=== PATIENT | female | born 1940 | race Caucasian/White ===

== ENCOUNTER → 2021-04-28 | Day surgery (SDC) | payer OTHER ==
[~2021-04-28] VITALS: Ht 157.5 cm; Wt 59.9 kg
[~2021-04-28] MED LIST: GABAPENTIN600 M1 PO; HYDROXYZINE HCL25 M2 PO; IBUPROFEN 600600 M1 PO; LEVOTHYROXIN0.088 MG PO; LEVOTHYROXINE75 MCG PO; LISINOPRIL10 MG PO; LOVASTATIN 20 M20 MG PO; LOVASTATIN40 MG PO; NEURONTIN600 MG PO; NIFEDIPINE ER30 MG PO; OSELB75 PO; PROBIOTIC1 EAC7 PO; ZANTAC 150MG T150 MG PO
--- NOTE | ~2021-04-28 | O ---
[facility] [place] [address] OPERATIVE REPORT Name: LEONARDO KRISHNAN Room #: REG [facility].#: [id number] Admission: 04/28/21 Attend Phys: Rajesh Domingo MD Discharge: Date of : 38 Report #: [id number] THIS REPORT FOR: cc: Geri Denis,Rajesh Herbert MD ~ cc: Geri Warren DATE OF SERVICE: 04/28/2021 PREOPERATIVE DIAGNOSIS: Basal cell carcinoma, right lower lid and cheek. POSTOPERATIVE DIAGNOSIS: Basal cell carcinoma, right lower lid and cheek. PROCEDURE: Excision of basal cell carcinoma of right lower lid and cheek with frozen section control of margins and myocutaneous flap repair of defect. SURGEON: Rajesh Domingo MD. BORING MACHINE OPERATOR HORIZONTAL: None. ANESTHESIA: MAC. COMPLICATIONS: None. INDICATIONS FOR SURGERY: This pleasant 81-year-old woman has a biopsy proven basal cell carcinoma in her right lower lid that extends down onto her cheek. She presents today for excision of the tumor with frozen sections and subsequent reconstruction of that defect. Informed consent was obtained to include but not limited to the potential risk for loss of vision, bleeding, infection, failure to improve the problem, the potential need for further surgery or treatment. DESCRIPTION OF PROCEDURE: The patient was taken to the operating room where 2% Xylocaine with epinephrine mixed with equal parts 0.75% Marcaine with Wydase was administered transcutaneously and transconjunctivally to the right lower lid, the right cheek, the right medial canthus, right lateral canthus and the infratemporal fossa. The patient was subsequently prepped and draped in the usual sterile fashion. A fine tip skin marking pen was then utilized to outline the lesion including 1-2 mm of normal appearing tissue around its margins. The incisions were then made perpendicularly across the eyelid margin and drawn to a point in the premalar space. Hemostasis was achieved with diligent pinpoint monopolar cautery. The specimen was then oriented on a drawing for the waiting pathologist. She snap froze the tissue and found that the margins were clear. A myocutaneous flap was then developed laterally to be rotated medially to correct the defect. Hemostasis was then re-achieved. The flap was then [address] [address] OPERATIVE REPORT Name: LEONARDO KRISHNAN Room #: REG [facility].#: [id number] Admission: 04/28/21 Attend Phys: Rajesh Domingo MD Discharge: Date of : 38 Report #: [id number] advanced as the relaxing incisions were closed with interrupted buried Vicryl sutures deep and then 6-0 plain gut sutures more superficially. As the flap was advanced more medially those structures were reapproximated with interrupted 5-0 Vicryl sutures deep, followed by an eyelid margin closure of 7-0 Vicryl sutures. The subcutaneous structures medially were closed with interrupted buried Vicryl sutures deep and then a final closure of 6-0 plain. The wounds were then cleaned and dressed with erythromycin ointment. The patient was subsequently transported to the recovery area, having tolerated the procedures well with no anesthetic or operative complications being noted. By: [id number] Rajesh Domingo MD /nt
[2021-04-28 08:24] VITALS: BP 133/73
--- NOTE | 2021-04-29 17:07 | PATH ---
[facility] [place] [address] PATHOLOGY RPT PROCEDURE Name: LEONARDO KRISHNAN Room #: REG [facility] M.R.#: [id number] Admission: 04/28/21 Date of : 38 Discharge: Report #: [id number] Path Case #: [id number] [facility] Accession Number: [id number] . 01 Material submitted: . eyelid - RIGHT LOWER LID FS. Modifiers: right, lower . 02 Frozen section diagnosis: . FROZEN SECTION DIAGNOSIS (Dr. Caro Escobar) . FSA1. Skin, right lower lid, excision: - Margins free of invasive carcinoma on FS slides. . These findings are discussed with Dr. Rajesh Domingo in OR-6 at [facility] and a written report is placed in the patient's chart. . . GROSS DESCRIPTION Specimen is received fresh from the OR labeled with the patient's name, and "right lower lid", consists of an inverted triangular excision of skin measuring 1 cm from base to height, 0.7 cm in width, and 0.5 cm in thickness. The medial to inferior margin is inked black, the inferior half of the lateral margin is inked blue, the superior half of the lateral margin is inked green. The conjunctival margin is inked yellow. Specimen is sectioned into 3 pieces and submitted for frozen section in entirety as FSA1, this is subsequently submitted for permanent section as A1. 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 Frozen section performed at [facility], [address] [place] [address]. IZV/MBR . 02 Diagnosis: Skin, right lower lid, excision: - BASAL CELL CARCINOMA. - Margins of resection free of malignancy in the sections examined. (IUV:susie; 04/29/2021) MBR 04/29/2021 1258 Local . 02 Electronically signed: . Caro Escobar MD, Pathologist NPI- [id number] . 03 Gross description: . PLEASE SEE GROSS DESCRIPTION UNDER FROZEN SECTION DIAGNOSIS. /MBR 04/28/[address] [address] PATHOLOGY RPT PROCEDURE Name: LEONARDO KRISHNAN Room #: REG [facility] M.R.#: [id number] Admission: 04/28/21 Date of : 38 Discharge: Report #: [id number] Path Case #: [id number] . 02 Pathologist provided ICD-10: C44.1122 . 02 CPT . 857954, [id number] Specimen Comment: A courtesy copy of this report has been sent to [phone] Specimen Comment: Report sent to Performed at: [address], [place], [place] [id number] MD Ad Kelley MD Phone: [phone] Performed at: [address] [id number] MD Caro Escobar MD Phone: [phone] Performed at: [address], [place], [place] [id number] MD Farhad Brantley MD Phone: [phone]
== END | disposition home or self-care (01) ==
LOC: OR 07:20
PROVIDERS: ATTEND Ophthalmology
DX: C44.1122 Basal cell carcinoma of skin of right lower eyelid, including canthus (principal); I12.9 Hypertensive chronic kidney disease with stage 1 through stage 4 chronic kidney disease, or unspecified chronic kidney disease; N18.2 Chronic kidney disease, stage 2 (mild); E03.9 Hypothyroidism, unspecified; E78.5 Hyperlipidemia, unspecified; Z98.890 Other specified postprocedural states; Z79.899 Other long term (current) drug therapy; Z87.891 Personal history of nicotine dependence; Z98.41 Cataract extraction status, right eye; Z98.42 Cataract extraction status, left eye; Z98.51 Tubal ligation status
CPT/HCPCS: 50010; 50101; 50386; 50398; 51636; 56528; 56531; 62110; 62850; 70005